=== PATIENT | female | born 1955 | race Caucasian/White ===

== ENCOUNTER 2016-10-02 12:04 | Emergency (ER) | payer OTHER ==
[~2016-10-02 12:04] MED LIST: ACID REDUCER 1150 MG PO; CEFDINIR300 MG PO; CHILDRENS CHEWA81 MG PO; CLARITIN10 MG PO; HYDROCODON-ACE1 EAC6 PO; KLOR-CON 88 MEQ PO; LASIX40 MG PO; MEDROL4 M1 PO; METFORMIN HCL500 MG PO; METOPROLOL TART25 MG PO; NEURONTIN600 MG PO; PRAVACHOL20 MG PO; REQUIP1 MG PO; SYNTHROID25 MCG PO; TRIHEXYPHENIDYL2 MG PO; VALIUM5 MG PO; ZESTRIL5 MG PO; ZITHROMAX250 MG PO
[2016-10-02 13:46] LABS: URINE BILIRUBIN NEGATIVE (NEGATIVE); URINE BLOOD 2+ (NEGATIVE); URINE GLUCOSE (UA) NORMAL (NORMAL); URINE KETONE NEGATIVE (NEGATIVE); URINE LEUKOCYTE ESTERASE 2+ (NEGATIVE); URINE NITRATE NEGATIVE (NEGATIVE); URINE PROTEIN TRACE (NEGATIVE); UROBILINOGEN NORMAL mg/dL (<1.0)
[2016-10-02 14:00] LABS: URINE BACTERIA 1+ (NONE SEEN); URINE RBC 0-5 /[HPF] (0-2); URINE RENAL EPITHELIAL CELLS 0-10 /[HPF] (NONE SEEN); URINE SQUAMOUS EPITHELIAL CELL 0-10 /[HPF] (NONE SEEN); URINE WBC TNTC /[HPF] (0-5)
== END 2016-10-02 15:08 | disposition home or self-care (01) ==
LOC: ER 12:04
PROVIDERS: Emergency Medicine
DX: N30.90 Cystitis, unspecified without hematuria (principal); R10.30 Lower abdominal pain, unspecified; Z85.118 Personal history of other malignant neoplasm of bronchus and lung; Z98.890 Other specified postprocedural states; Z79.899 Other long term (current) drug therapy; Z79.82 Long term (current) use of aspirin
CPT/HCPCS: 81001; 87086; 87186; 99070; 99283